=== PATIENT | female | born 1985 | race Caucasian/White ===

== ENCOUNTER 2020-01-23 17:15 | Emergency (ER) | payer MEDICAID, SELFPAY ==
[~2020-01-23] VITALS: Ht 149.9 cm; Wt 48.5 kg
--- NOTE | 2020-01-23 17:30 | NUR ---
Pt triaged and placed in tent. V/S stable, no distress noted.
--- NOTE | 2020-01-23 17:45 | NUR ---
ER Dr. Rothman at bedside examining patient.
[2020-01-23] MEDS ORDERED: ACETAMINOPHEN 500 MG TABLET PO ONE (18:00)
--- NOTE | 2020-01-23 18:00 | NUR ---
NO ANSWER IN TENT
[2020-01-23 18:02] VITALS: BP_SYST 111
--- NOTE | 2020-01-23 18:30 | NUR ---
NO ANSWER IN TENT
--- NOTE | 2020-01-23 19:11 | NUR ---
NO ANSWER PT LYNN
== END 2020-01-23 19:11 | disposition left against medical advice (07) ==
LOC: SED 17:15
DX: T82.848A Pain due to vascular prosthetic devices, implants and grafts, initial encounter (principal); Z85.9 Personal history of malignant neoplasm, unspecified; X58.XXXA Exposure to other specified factors, initial encounter
CPT/HCPCS: 99281